=== PATIENT | female | born 1995 | race Asian ===

== ENCOUNTER 2016-08-28 10:42 | Emergency (ER) | payer BC ==
[2016-08-28 10:50] VITALS: BP 114/59; PULSE 77; RESP 16; TEMP 97.9; O2SAT 98
[2016-08-28] MEDS ORDERED: DEXAMETHASONE 4 MG TAB PO ONE (12:08)
--- NOTE | 2016-08-28 12:13 | EDPHY ---
H & P Time Seen by Provider: 08/28/16 11:12 HPI/ROS: CHIEF COMPLAINT: sore throat HISTORY OF PRESENT ILLNESS: 21-year-old female presents emergency department complaining of sore throat x3 days. Patient states today she started with a mild nasal congestion. She denies cough, ear pain, fevers or chills, no neck pain, no body aches. Patient states she took 1 dose of ibuprofen yesterday without relief, she is using a throat spray which is minimally helpful. She denies difficulty managing her secretions. No chest pain or shortness of breath. REVIEW OF SYSTEMS: A comprehensive 10 point review of systems is otherwise negative aside from elements mentioned in the history of present illness. Smoking Status: Never smoked Physical Exam: General: Alert, nontoxic. ENT: Tympanic membranes clear, external auditory canal, external ear and surrounding soft tissue including over the mastoid unremarkable. Nasopharynx is not injected, there is no rhinorrhea. Oropharynx with erythema, no edema. There is no exudate. Mild bilateral tonsillar hypertrophy. No asymmetry. The uvula is midline. No elevation of tongue. There is no hoarseness. No drooling, patient has good control of their oral secretions. No trismus. No stridor. Cardiac: Regular rate and rhythm. Respiratory: Lungs clear to auscultation bilaterally. Neurological: no meningismus. Skin: No rashes. Constitutional: Initial Vital Signs Temperature (C) 36.6 C 08/28/16 10:48 Heart Rate 77 08/28/16 10:48 Respiratory Rate 16 08/28/16 10:48 Blood Pressure 114/59 L 08/28/16 10:48 O2 Sat (%) 98 08/28/16 10:48 O2 Delivery Mode Room Air Allergies/Adverse Reactions: No Known Allergies Allergy (Verified 08/28/16 10:47) Home Medications: Medication Instructions Recorded Fluticasone Nasal [Flonase Nasal 1 sprays NASAL DAILY #1 mdi 08/28/16 Perrin (RX)] Mononessa 28 Tablet 08/28/16 MDM/Departure - Depart Disposition: Home, Routine, Self-Care Clinical Impression: Acute pharyngitis Qualifiers: Pharyngitis/tonsillitis etiology: unspecified etiology Qualifier Code: (J02.9) Acute pharyngitis, unspecified Condition: Good Instructions: Pharyngitis (ED) Additional Instructions: Take over the counter Tylenol and ibuprofen as instructed. Rest, drink plenty of fluids. Use a saline nasal rinse, humidifier at night, hot steam showers. Use 2 sprays of Flonase once daily in each nostril for 7 days. Return to the ED for difficulty breathing, chest pain, other concerns. Prescriptions: Fluticasone Nasal [Flonase Nasal Perrin (RX)] 1 sprays NASAL DAILY #1 mdi Referrals: Elizabeth Alejandre NP [Primary Care Provider] - As per Instructions
== END 2016-08-28 12:33 | disposition home or self-care (01) ==
DX: J02.9 Acute pharyngitis, unspecified (principal)